=== PATIENT | female | born 1970 | race Caucasian/White ===

== ENCOUNTER 2018-03-04 13:28 | Outpatient (CLI) | payer MEDICARE, MEDICAID, SELFPAY ==
[2018-03-04 13:57] LABS: Abs Immature Grans 0.06 k/cumm (0.0-0.09); Absolute Basophil Count 0.04 k/cumm (0.0-0.2); Absolute Eosinophil Count 0.14 k/cumm (0.0-0.7); Absolute Lymphocyte Count 2.24 k/cumm (1.2-3.4); Absolute Monocyte Count 0.41 k/cumm (0.11-0.7); Absolute Neutrophil Count 5.18 k/cumm (1.2-6.7); Basophils % 0.5; Eosinophils % 1.7; HCT 40.9 % (36.0-46.0); HGB 13.5 g/dL (12.0-15.5); Immature Grans % 0.7; Lymphocytes % 27.8; Mean Corpuscular Hemoglobin 33.3 pg (27.0-33.0); Mean Platelet Volume 8.4 fL (8.0-11.0); Monocytes % 5.1; Neutrophils % 64.2; Platelet Count 368 x1000/uL (130-400); RBC 4.05 m/cumm (4.00-5.20); RBC Distribution Width 12.5 % (11.7-14.6); White Blood Cell Count 8.07 k/cumm (4.4-10.8)
[2018-03-04 14:48] LABS: Lithium 0.66 mmol/L (0.60-1.20)
[2018-03-04 15:00] LABS: Anion Gap 9.7 mmol/L (3-11); BUN 12 mg/dL (7-18); CO2 24.3 mmol/L (21.0-32.0); CREATININE 0.88 mg/dL (0.55-1.02); Calcium 10.5 mg/dL (8.5-10.1); Chloride 106 mmol/L (98-107); Cholesterol 266 mg/dL (50-200); Glucose 93 mg/dL (70-100); HDL Cholesterol 35 mg/dL (40-60); LDL CHOLESTEROL 72 mg/dL (<100); Potassium 4.3 mmol/L (3.5-5.1); Sodium 140 mmol/L (136-145); TSH (W/Ref FT4) 0.96 uIU/mL (0.358-3.74); Triglyceride 965 mg/dL (30-150)
[2018-03-08 09:43] LABS: Parathyroid Hormone,Intact 55 pg/ml (19-88)
== END 2018-03-04 13:48 ==
PROVIDERS: PCP Family Medicine; Visit Provider Family Medicine
DX: F17.200 Nicotine dependence, unspecified, uncomplicated (principal); F31.9 Bipolar disorder, unspecified; E78.5 Hyperlipidemia, unspecified; Z51.81 Encounter for therapeutic drug level monitoring; Z79.899 Other long term (current) drug therapy; E83.52 Hypercalcemia
CPT/HCPCS: 36415; 80048; 80061; 83721; 80178; 83970; 84443; 85025

== ENCOUNTER 2018-05-20 08:56 | Outpatient (CLI) | payer MEDICARE, MEDICAID, SELFPAY ==
[2018-05-20 11:18] LABS: Cholesterol 265 mg/dL (50-200); HDL Cholesterol 27 mg/dL (40-60); LDL CHOLESTEROL 60 mg/dL (<100)
[2018-05-20 11:25] LABS: Triglyceride 1940 mg/dL (30-150)
== END 2018-05-20 09:16 ==
PROVIDERS: PCP Family Medicine; Visit Provider Family Medicine
DX: E78.2 Mixed hyperlipidemia (principal)
CPT/HCPCS: 36415; 80061; 83721

== ENCOUNTER 2018-05-25 12:07 | Outpatient (CLI) | payer MEDICARE, MEDICAID, SELFPAY ==
[2018-05-25 13:27] LABS: Amylase 84 U/L (25-115); Lipase 257 U/L (73-393)
== END 2018-05-25 12:27 ==
PROVIDERS: PCP Family Medicine; Visit Provider Family Medicine
DX: R10.9 Unspecified abdominal pain (principal)
CPT/HCPCS: 36415; 83690; 82150

== ENCOUNTER 2018-05-27 10:50 | Outpatient (REF) | payer MEDICARE, MEDICAID, SELFPAY ==
--- NOTE | 2018-05-27 10:00 | PAPFT_PTH ---
PATIENT: Katherin Arnold LOC: [facility] U#:[id number] AGE/SX: 47/F ROOM: RE05/27/[address]: DOUG Espinosa : 1970 BED: DIS: 05/27/2018 SPEC #: [id number] RECD: 05/27/18 12:47 STATUS: LUCAS REQ #: [id number] NAVIN: 05/27/18 10:[address]: Lauren Tijerina DEPT: [facility] Cytology RECD BY: Petrona Ruiz ENTERED: 05/27/18 12:47 SP TYPE: PAPFT OTHR DR: Víctor Nails MD Tissues: 1 - CX/ENDOCX FOR PAP SMEARS Procedures: PAP THIN PREP/[facility] Screening HPV DNA PROBE Comments: [id number]
== END 2018-05-27 11:10 ==
LOC: LBN 10:50
PROVIDERS: PCP Family Medicine; Visit Provider Nurse Practitioner Family
DX: Z12.4 Encounter for screening for malignant neoplasm of cervix (principal); Z11.51 Encounter for screening for human papillomavirus (HPV)
CPT/HCPCS: 88142; 87624

== ENCOUNTER 2018-08-10 11:40 | Outpatient (CLI) | payer MEDICARE, MEDICAID, SELFPAY ==
[2018-08-10 14:05] LABS: Cholesterol 197 mg/dL (50-200); Glucose 91 mg/dL (70-100); HDL Cholesterol 30 mg/dL (40-60); Triglyceride 660 mg/dL (30-150)
[2018-08-10 14:25] LABS: LDL CHOLESTEROL 63 mg/dL (<100)
== END 2018-08-10 12:00 ==
PROVIDERS: PCP Family Medicine; Visit Provider Family Medicine
DX: E78.1 Pure hyperglyceridemia (principal)
CPT/HCPCS: 36415; 80061; 82947; 83721

== ENCOUNTER 2018-10-27 01:40 | Outpatient (CLI) | payer MEDICARE, MEDICAID, SELFPAY ==
[2018-10-27 11:12] LABS: Triglyceride 427 mg/dL (30-150)
[2018-10-27 11:24] LABS: LDL CHOLESTEROL 96 mg/dL (<100)
== END 2018-10-27 02:00 ==
PROVIDERS: PCP Family Medicine; Visit Provider Family Medicine
DX: E78.1 Pure hyperglyceridemia (principal)
CPT/HCPCS: 36415; 83721; 84478

== ENCOUNTER 2019-02-21 00:41 | Outpatient (CLI) | payer MEDICARE, MEDICAID, SELFPAY ==
--- NOTE | 2019-02-21 11:31 | DI.MAMMO_ITS ---
EXAM: MG MAMMO SCREENING CLINICAL HISTORY: screening, Z12.39. TECHNIQUE: Full field digital CC and MLO mammographic images were obtained with 3D tomosynthesis and utilizing computer aided detection (CAD). COMPARISON: [id number]. FINDINGS: Breast density: C Masses/Architectural Distortion: None seen. Microcalcifications: No suspicious pleomorphic-type calcifications are seen. Skin Thickening/Nipple Retraction: None. Axilla: Unremarkable. IMPRESSION: 1. BI-RADS category 1, negative. No significant interval change with no specific features of maligna ncy noted. 2. Unless there is more urgent need, screening mammography is recommended, as per [employer] guidelines. BI-RADS Cat 1 - Negative Breast Density - Category C - Heterogeneously dense A negative radiographic report should not delay biopsy if a dominant or clinically suspicious mass is present. Up to ten percent of cancers are not identified on mammography. A negative report may reinforce clinical impression. Adenosis and dense breasts may obscure an underlying neoplasm. False positive reports average 6 to 10%. Patient will receive a letter notifying them of these results.
[2019-02-21 13:09] LABS: Glucose 91 mg/dL (74-106); TSH (W/Ref FT4) 1.27 uIU/mL (0.36-3.74); Triglyceride 338 mg/dL (<150)
== END 2019-02-21 01:01 ==
PROVIDERS: PCP Family Medicine; Visit Provider Nurse Practitioner
DX: Z12.31 Encounter for screening mammogram for malignant neoplasm of breast (principal); E78.5 Hyperlipidemia, unspecified; F34.9 Persistent mood [affective] disorder, unspecified; F31.9 Bipolar disorder, unspecified
CPT/HCPCS: 36415; 77063; 77067; 82947; 82565; 84443; 84478

== ENCOUNTER 2019-04-29 13:40 | Outpatient (CLI) | payer MEDICARE, MEDICAID, SELFPAY ==
[2019-04-29 15:04] LABS: Calcium 10.2 mg/dL (8.5-10.1); Triglyceride 699 mg/dL (<150)
[2019-05-02 09:26] LABS: FSH 63.5 mIU/mL (See Note)
== END 2019-04-29 14:00 ==
PROVIDERS: Obstetrics & Gynecology; PCP Family Medicine; Visit Provider Family Medicine
DX: E78.1 Pure hyperglyceridemia (principal); N95.1 Menopausal and female climacteric states
CPT/HCPCS: 36415; 83721; 82310; 83001; 84478

== ENCOUNTER 2019-05-10 15:25 | Outpatient (CLI) | payer MEDICARE, MEDICAID, SELFPAY ==
[2019-05-10 16:45] LABS: Lithium 0.58 mmol/L (0.60-1.20)
== END 2019-05-10 15:45 ==
PROVIDERS: PCP Family Medicine; Visit Provider Family Medicine
DX: F31.9 Bipolar disorder, unspecified (principal); Z51.81 Encounter for therapeutic drug level monitoring
CPT/HCPCS: 36415; 80178

== ENCOUNTER 2019-07-22 02:15 | Outpatient (CLI) | payer MEDICARE, MEDICAID, SELFPAY ==
[2019-07-22 15:30] LABS: Glucose 94 mg/dL (74-106); Triglyceride 373 mg/dL (<150)
== END 2019-07-22 02:35 ==
PROVIDERS: PCP Family Medicine; Visit Provider Family Medicine
DX: E78.1 Pure hyperglyceridemia (principal); R73.9 Hyperglycemia, unspecified
CPT/HCPCS: 36415; 82947; 81015; 84478

== ENCOUNTER 2019-10-04 02:13 | Outpatient (CLI) | payer MEDICARE, MEDICAID, SELFPAY ==
[2019-10-04 10:49] LABS: Glucose 105 mg/dL (74-106); Triglyceride 232 mg/dL (<150)
== END 2019-10-04 02:33 ==
PROVIDERS: PCP Family Medicine; Visit Provider Family Medicine
DX: R73.9 Hyperglycemia, unspecified (principal); E78.1 Pure hyperglyceridemia
CPT/HCPCS: 36415; 82947; 84478

== ENCOUNTER 2020-02-16 04:57 | Outpatient (CLI) | payer MEDICARE, MEDICAID, SELFPAY ==
[2020-02-16 12:20] LABS: HCT 41.3 % (36.0-46.0); HGB 13.3 g/dL (11.2-15.7); MCH 32.7 pg (27.0-33.0); MCHC 32.2 % (32.0-36.0); MCV 101.5 fL (80-95); MPV 9.2 fL (8.0-11.0); Platelet Count 471 10^3/uL (130-400); RBC 4.07 10^6/uL (3.93-5.22); RDW 12.7 % (11.7-14.6); RDW-SD 47.8 fL; WBC 8.65 10^3/uL (4.4-10.8)
[2020-02-16 12:32] LABS: Anion Gap 9.1 mmol/L (3-11); BUN 15 mg/dL (7-18); CO2 24.9 mmol/L (21.0-32.0); Calcium 10.3 mg/dL (8.5-10.1); Chloride 105 mmol/L (98-107); Glucose 113 mg/dL (74-106); Potassium 4.8 mmol/L (3.5-5.1); Sodium 139 mmol/L (136-145)
== END 2020-02-16 05:17 ==
PROVIDERS: PCP Family Medicine; Visit Provider Family Medicine
DX: D64.9 Anemia, unspecified (principal); E87.1 Hypo-osmolality and hyponatremia
CPT/HCPCS: 36415; 80048; 85027

== ENCOUNTER 2020-02-22 17:24 | Emergency (ER) | payer MEDICARE, MEDICAID, SELFPAY ==
--- NOTE | 2020-02-22 17:28 | W.ED.FU ---
I went to evaluate the patient and as I was approaching the room she stormed out of the room and left the emergency department. I was not able to assess the patient other than to determine she exhibited clear speech, ambulated without any dysfunction and appeared agitated. Patient noted to access assistant front desk manager that she was here for a mental evaluation. Patient noted to nursing that she decided she did not want to be evaluated and demanded to leave. Patient did not express any suicidality/homicidality to triage staff.
--- NOTE | 2020-02-22 17:28 | NUR.NOTE ---
i met pt in the waiting room, Im not being admiited I guess I need to get evaluated she was brought to room 5. she stated that she was not staying and walked briskly out of the department. she had a steady gait and clear speech. Nursing Note:
== END 2020-02-22 17:28 | disposition other institution (70) ==
LOC: ER 17:30
PROVIDERS: Emergency Provider Student in an Organized Health Care Education/Training Program; PCP Family Medicine
DX: Z53.21 Procedure and treatment not carried out due to patient leaving prior to being seen by health care provider (principal)

== ENCOUNTER 2020-04-12 08:11 | Outpatient (CLI) | payer MEDICARE, MEDICAID, SELFPAY ==
[2020-04-12 20:39] LABS: COVID-19 RT-PCR UVMMC Result Negative (Negative)
== END 2020-04-12 08:12 | disposition home or self-care (01) ==
LOC: LBO 08:12
PROVIDERS: PCP Family Medicine; Visit Provider Family Medicine
DX: Z20.822 Contact with and (suspected) exposure to COVID-19 (principal)
CPT/HCPCS: U0003; U0005

== ENCOUNTER 2020-04-17 11:27 | Outpatient (CLI) | payer MEDICARE, MEDICAID, SELFPAY ==
[2020-04-17 13:03] LABS: Hemoglobin A1C 5.7 % (<5.7)
[2020-04-17 13:04] LABS: Glucose 104 mg/dL (74-106); Triglyceride 124 mg/dL (<150)
== END 2020-04-17 11:28 | disposition home or self-care (01) ==
LOC: LOS 11:28
PROVIDERS: PCP Family Medicine; Visit Provider Family Medicine
DX: E78.1 Pure hyperglyceridemia (principal); R73.9 Hyperglycemia, unspecified
CPT/HCPCS: 36415; 82947; 83036; 84478

== ENCOUNTER 2020-04-26 09:25 | Outpatient (CLI) | payer MEDICARE, MEDICAID, SELFPAY ==
[2020-04-27 13:42] LABS: COVID-19 RT-PCR UVMMC Result Negative (Negative)
== END 2020-04-26 09:26 | disposition home or self-care (01) ==
LOC: LBO 09:26
PROVIDERS: PCP Family Medicine; Visit Provider Family Medicine
DX: Z20.822 Contact with and (suspected) exposure to COVID-19 (principal)
CPT/HCPCS: U0003; U0005

== ENCOUNTER 2020-05-10 03:39 | Outpatient (CLI) | payer MEDICARE, MEDICAID, SELFPAY ==
[2020-05-11 16:13] LABS: COVID-19 RT-PCR UVMMC Result Negative (Negative)
== END 2020-05-10 03:40 | disposition home or self-care (01) ==
LOC: LBO 03:39
PROVIDERS: PCP Family Medicine; Visit Provider Family Medicine
DX: Z20.822 Contact with and (suspected) exposure to COVID-19 (principal)
CPT/HCPCS: U0003; U0005

== ENCOUNTER 2020-06-05 03:12 | Outpatient (CLI) | payer MEDICARE, MEDICAID, SELFPAY ==
[2020-06-06 11:08] LABS: COVID-19 RT-PCR UVMMC Result Negative (Negative)
== END 2020-06-05 03:13 | disposition home or self-care (01) ==
LOC: LBO 03:12
PROVIDERS: PCP Family Medicine; Visit Provider Family Medicine
DX: Z20.822 Contact with and (suspected) exposure to COVID-19 (principal)
CPT/HCPCS: 87635; U0003; U0005

== ENCOUNTER 2020-06-12 02:59 | Outpatient (CLI) | payer MEDICARE, MEDICAID, SELFPAY ==
[2020-06-13 18:00] LABS: COVID-19 RT-PCR UVMMC Result Negative (Negative)
== END 2020-06-12 03:00 | disposition home or self-care (01) ==
LOC: LBO 02:59
PROVIDERS: PCP Family Medicine; Visit Provider Family Medicine
DX: Z20.822 Contact with and (suspected) exposure to COVID-19 (principal)
CPT/HCPCS: U0003; U0005

== ENCOUNTER 2020-07-05 01:56 | Outpatient (CLI) | payer MEDICARE, MEDICAID, SELFPAY ==
[2020-07-06 14:04] LABS: COVID-19 RT-PCR UVMMC Result Negative (Negative)
== END 2020-07-05 01:57 | disposition home or self-care (01) ==
PROVIDERS: PCP Family Medicine; Visit Provider Family Medicine
DX: M77.11 Lateral epicondylitis, right elbow (principal); Z20.822 Contact with and (suspected) exposure to COVID-19
CPT/HCPCS: 20550; 99213; U0003; U0005; J1030

== ENCOUNTER 2020-07-19 02:00 | Outpatient (CLI) | payer MEDICARE, MEDICAID, SELFPAY ==
[2020-07-20 19:22] LABS: COVID-19 RT-PCR UVMMC Result Negative (Negative)
== END 2020-07-19 02:01 | disposition home or self-care (01) ==
LOC: LBO 02:01
PROVIDERS: PCP Family Medicine; Visit Provider Family Medicine
DX: Z20.822 Contact with and (suspected) exposure to COVID-19 (principal)
CPT/HCPCS: U0003; U0005

== ENCOUNTER 2020-08-01 03:06 | Outpatient (CLI) | payer MEDICARE, MEDICAID, SELFPAY ==
[2020-08-02 15:29] LABS: COVID-19 RT-PCR UVMMC Result Negative (Negative)
== END 2020-08-01 03:07 | disposition home or self-care (01) ==
LOC: LBO 03:07
PROVIDERS: PCP Family Medicine; Visit Provider Family Medicine
DX: Z20.822 Contact with and (suspected) exposure to COVID-19 (principal)
CPT/HCPCS: U0003; U0005